=== PATIENT | male | born 2000 | race Hispanic/Latino ===

== ENCOUNTER 2019-03-03 15:04 | Emergency (ER) | payer OTHER ==
[~2019-03-03] VITALS: Ht 182.9 cm; Wt 68.0 kg
--- NOTE | 2019-03-03 15:22 | NUR ---
SUSAN MORGAN BEDSIDE AT THIS TIME
== END 2019-03-03 15:42 | disposition home or self-care (01) ==
LOC: ER 15:04
DX: S39.012A Strain of muscle, fascia and tendon of lower back, initial encounter (principal); X50.0XXA Overexertion from strenuous movement or load, initial encounter; Y93.89 Activity, other specified; Y92.69 Other specified industrial and construction area as the place of occurrence of the external cause; Y99.0 Civilian activity done for income or pay
CPT/HCPCS: 99282